=== PATIENT | male | born 1950 | race Caucasian/White ===

== ENCOUNTER → 2018-07-06 | Outpatient (CLI) | payer MEDICARE ==
[2015-10-26 23:06] VITALS: BP 146/89
[~2018-07-06] MED LIST: CEFT1VIA IJ; ESOM40CA PO; HYDR-2765 PO; PRED20TA PO; TAMS0.4C97 PO; TRAM-48 PO; TRAM50TA PO; TRIA1TAB3 PO; WARF-78 PO
--- NOTE | 2018-07-06 17:07 | RAD ---
DUPLEX SONOGRAPHY OF THE PERIPHERAL ARTERIAL SYSTEM OF [ ] Clinical indications: Peripheral arterial disease. Type 2 diabetes. Left leg numbness. Hypertension. Findings: Duplex sonography of the peripheral arterial system of both lower extremities including carranza scale and color flow and spectral waveform analysis was performed.Triphasic and biphasic waveforms are seen. No occlusive disease is seen. No significant plaque formation or stenosis is identified. The measurements were performed using the NASCET criteria. Peak systolic flow velocities are as follows: Right leg: common femoral artery- 100 cm/sec, profunda femoral artery -69 cm/sec, proximal superficial femoral artery -110 cm/sec, mid superficial femoral artery -112 cm/sec, distal superficial femoral artery- 63 cm/sec, popliteal artery -47 cm/sec, proximal posterior tibial artery- 49 cm/sec, distal posterior tibial artery- 89 cm/sec, peroneal artery- 71 cm/sec, anterior tibial artery- 38 cm/sec, dorsalis pedis artery -21 cm/sec. Left leg: common femoral artery- 123 cm/sec, profunda femoral artery -c9 cm/sec, proximal superficial femoral artery- 126cm/sec, mid superficial femoral artery- 104 cm/sec, distal superficial femoral artery- 68 cm/sec, popliteal artery -57 cm/sec, proximal posterior tibial artery -28 cm/sec, distal posterior tibial artery- 26 cm/sec, peroneal artery -40 cm/sec, anterior tibial artery -77 cm/sec, dorsalis pedis artery- 58 cm/sec. Impression: No significant peripheral arterial vascular disease is seen by duplex sonographic evaluation. Electronically signed by: Jhoan Gomez MD (07/06/2018 5:05 PM) [place] [id number]
== END | disposition home or self-care (01) ==
LOC: US 13:29
PROVIDERS: ATTEND Family Medicine
DX: E11.52 Type 2 diabetes mellitus with diabetic peripheral angiopathy with gangrene (principal); I73.9 Peripheral vascular disease, unspecified; R20.0 Anesthesia of skin; I10 Essential (primary) hypertension
CPT/HCPCS: 93925

== ENCOUNTER → 2019-06-06 | Outpatient (CLI) | payer MEDICARE ==
[2015-10-26 23:06] VITALS: BP 146/89
[~2019-06-06] MED LIST changes: +GUAI120L35 PO; +METH4TAB2 PO
[2019-06-06 17:54] LABS: BASO # 0.1 x10^3/uL (0.0-0.2); BASO % 1 % (0-3); EOS # 0.3 x10^3/uL (0.0-0.7); EOS % 4 % (0-3); HEMATOCRIT 46.6 % (39.0-53.0); HEMOGLOBIN 15.2 g/dL (13.0-17.5); LYMPH # 2.5 x10^3/uL (1.0-4.8); LYMPH % 30 % (24-48); MEAN CORPUSCULAR HEMOGLOBIN 29 pg (25-35); MEAN CORPUSCULAR HGB CONC 33 g/dL (31-37); MEAN CORPUSCULAR VOLUME 89 fL (79-100); MONO # 0.8 x10^3/uL (0.0-1.1); MONO % 9 % (0-9); NEUT # 4.8 x10^3uL (1.8-7.7); NEUT % 57 % (31-73); PLATELET COUNT 219 x10^3/uL (140-400); RED BLOOD COUNT 5.25 x10^6/uL (4.30-5.70); RED CELL DISTRIBUTION WIDTH 13.6 % (11.5-14.5); WHITE BLOOD COUNT 8.5 x10^3/uL (4.0-11.0)
[2019-06-06 18:00] LABS: CALCIUM 9.1 mg/dL (8.5-10.1); CREATININE 0.9 mg/dL (0.7-1.3); GFR 84.2; POTASSIUM 4.3 mmol/L (3.5-5.1)
--- NOTE | 2019-06-07 08:04 | RAD ---
CHEST PA LATERAL History: Dyspnea, coughing Comparison: 10/26/2015 2 view chest x-ray exam. Findings: Frontal and lateral views of the chest were obtained. The cardiomediastinal silhouette is normal. Pulmonary vasculature is normal. The lungs are clear. No pleural effusion or pneumothorax is seen. There is no acute bone abnormality. IMPRESSION: No acute cardiopulmonary process. Electronically signed by: Gentry Perrin MD (06/07/2019 8:01 AM) [facility]
== END | disposition home or self-care (01) ==
LOC: DXRAD 16:43
PROVIDERS: ATTEND Family Medicine
DX: R06.09 Other forms of dyspnea (principal)
CPT/HCPCS: 36415; 71046; 80048; 85025; 85379

== ENCOUNTER 2019-06-10 11:51 | Emergency (ER) | payer MEDICARE ==
[~2019-06-10] VITALS: Ht 172.7 cm; Wt 117.4 kg
[~2019-06-10 11:51] MED LIST changes: -GUAI120L35 PO; -METH4TAB2 PO
[2019-06-10] MEDS ORDERED: IV NORMAL SALINE 1,000ML 1,000 ML IV SCH (12:23)
[2019-06-10] MEDS ORDERED: IPRATRPIUM/ALBUTEROL 0.5/2.5MG 3 ML NEBU. NEB ONE (12:30)
[2019-06-10] MEDS ORDERED: MORPHINE SULFATE 4 MG/ML DISP.SYRIN. IV/SQ PRN (12:30)
[2019-06-10 12:33] LABS: BASO # 0.1 x10^3/uL (0.0-0.2); BASO % 1 % (0-3); EOS # 0.2 x10^3/uL (0.0-0.7); EOS % 2 % (0-3); HEMATOCRIT 47.6 % (39.0-53.0); HEMOGLOBIN 15.7 g/dL (13.0-17.5); LYMPH # 2.3 x10^3/uL (1.0-4.8); LYMPH % 27 % (24-48); MEAN CORPUSCULAR HEMOGLOBIN 29 pg (25-35); MEAN CORPUSCULAR HGB CONC 33 g/dL (31-37); MEAN CORPUSCULAR VOLUME 89 fL (79-100); MONO # 0.8 x10^3/uL (0.0-1.1); MONO % 10 % (0-9); NEUT # 5.1 x10^3uL (1.8-7.7); NEUT % 60 % (31-73); PLATELET COUNT 219 x10^3/uL (140-400); RED BLOOD COUNT 5.36 x10^6/uL (4.30-5.70); RED CELL DISTRIBUTION WIDTH 13.8 % (11.5-14.5); WHITE BLOOD COUNT 8.5 x10^3/uL (4.0-11.0)
[2019-06-10 12:39] LABS: CALCIUM 9.4 mg/dL (8.5-10.1); CREATININE 1.2 mg/dL (0.7-1.3); GFR 60.4; POTASSIUM 4.4 mmol/L (3.5-5.1)
--- NOTE | 2019-06-10 12:49 | RAD ---
Examination: PORTABLE CHEST 1V History: Cough. Comparison/Correlation: 06/06/2021 view chest x-ray exam, 10/26/2015 2 view chest x-ray exam Findings: Upright frontal view of the chest was obtained. Heart size and pulmonary vasculature are normal. No infiltrate or pleural effusion. No pneumothorax. Bony structures are unremarkable. Impression: No active disease. Electronically signed by: Gentry Perrin MD (06/10/2019 12:46 PM) [facility]
[2019-06-10 12:51] LABS: ALBUMIN 3.9 g/dL (3.4-5.0); TOTAL BILIRUBIN 0.3 mg/dL (0.2-1.0); TOTAL PROTEIN 7.8 g/dL (6.4-8.2)
[2019-06-10] MEDS ORDERED: IOHEXOL 350 MG/ML 100 ML VIAL. IV ONE (13:15)
[2019-06-10] MEDS ORDERED: MORPHINE SULFATE 4 MG/ML DISP.SYRIN. ONE (13:33)
--- NOTE | 2019-06-10 13:49 | EKG ---
[address] [address] Test Date: 2019-06-10 Test Time: 12:17:53 Pat Name: TAMMIE KASPER Department: Room: Gender: M [employer] Curer: : 1950 Requested By: MOUNA MAYS Order Number: [id number] Reading MD: Measurements Intervals [place] Rate: 108 P: 52 NC: 162 QRS: -34 QRSD: 94 T: 55 QT: 336 QTc: 454 Interpretive Statements SINUS TACHYCARDIA ABNORMAL LEFT AXIS DEVIATION R-S TRANSITION ZONE IN V LEADS DISPLACED TO THE LEFT LEFT ANTERIOR FASCICULAR BLOCK ABNORMAL ECG RI6.01 No previous ECG available for comparison
--- NOTE | 2019-06-10 13:51 | RAD ---
Examination: CT ANGIOGRAPHY CHEST History: Cough, shortness breath, chest pain Comparison/Correlation: None Findings: Axial images of the chest were obtained with IV contrast into pulmonary arteriography protocol. Sagittal and coronal reformatted images were provided. Pulmonary arterial vasculature is normal with no thromboembolic disease. Patchy opacification of proximal right lower lobe bronchi noted. No airspace disease identified. Tracheomalacia is present. No pleural or pericardial effusion. No enlarged thoracic lymph nodes. Fatty infiltration of the liver is present. Thoracic aorta is grossly unremarkable. Early bifurcation of the right main renal artery incidentally is seen. Bony structures are unremarkable. Impression: No pulmonary arterial thromboembolic disease. Opacification of the proximal right lower lobe bronchi noted. This likely represents retained mucus or inflammation. Follow-up CT exam in 12 weeks to assess resolution. Fatty infiltration of the liver. PQRS Compliance Statement: One or more of the following individualized dose reduction techniques were utilized for this examination: 1. Automated exposure control 2. Adjustment of the mA and/or kV according to patient size 3. Use of iterative reconstruction technique Electronically signed by: Gentry Perrin MD (06/10/2019 1:48 PM) [facility]
[2019-06-10 14:11] VITALS: BP 148/67
--- NOTE | 2019-06-10 14:22 | PHYS DOC ---
Past History Past Medical History: Arthritis, DVT, GERD, Hypertension, Prostatitis Past Surgical History: No Surgical History Alcohol Use: None Drug Use: None Adult General Chief Complaint Chief Complaint: COUGH HPI HPI Patient is a 68-year-old male who presents with complaint of cough and exertional shortness of breath for the last few weeks. Patient states that symptoms have progressively gotten worse over the last few days. He states that he is getting really sore in his chest from all the coughing and states that he feels some popping on the left side of his chest with the coughing and deep breathing. Patient states that cough is been intermittently productive of sputum. He states that he is currently on a course of Levaquin for treatment of the infection. Patient states that he was told to come into the emergency room to be evaluated for pulmonary embolism as he had an elevated d-dimer with labs done in the doctor's office. Patient denies any fever. He rates pain as moderate and states that pain is worsened with cough and deep breathing.[] Review of Systems Review of Systems Constitutional: Denies fever or chills [] Respiratory: Positive cough and shortness of breath [] Cardiovascular: No additional information not addressed in HPI [] Integument: Denies rash or skin lesions [] Neurologic: Denies headache, focal weakness or sensory changes [] All other systems were reviewed and found to be within normal limits, except as documented in this note. Current Medications Current Medications Current Medications Medications (Trade) Dose Ordered Sig/Thom Start Time Stop Time Status Last Admin Dose Admin Albuterol/ Ipratropium (Duoneb) 3 ml 1X ONCE 06/10/19 12:30 06/10/19 12:31 DC 06/10/19 12:30 3 ML Iohexol (Omnipaque 350 Mg/ml) 100 ml 1X ONCE 06/10/19 13:15 06/10/19 13:16 DC 06/10/19 13:22 100 ML Morphine Sulfate (Morphine 4mg Syringe) 4 mg STK-MED ONCE 06/10/19 13:33 06/10/19 13:33 DC Sodium Chloride 1,000 ml @ 1,000 mls/hr Q1H 06/10/19 12:23 06/10/19 13:22 DC 06/10/19 12:23 1,000 MLS/HR Allergies Allergies Allergies Coded Allergies Type Severity Reaction Last Updated Verified Sulfa (Sulfonamide Antibiotics) Allergy Mild 05/01/14 Yes I S O L A T I O N *CONTACT* Allergy Unknown 05/02/14 No Physical Exam Physical Exam Constitutional: Well developed, well nourished, no acute distress, non-toxic appearance. [] HENT: Normocephalic, atraumatic, bilateral external ears normal, oropharynx moist, no oral exudates, nose normal. [] Eyes: PERRLA, EOMI, conjunctiva normal, no discharge. [] Neck: Normal range of motion, no tenderness, supple, no stridor. [] Cardiovascular: Mildly tachycardic rate with regular rhythm[] Lungs & Thorax: Scattered rhonchi with fine inspiratory and expiratory wheezes to auscultation [] Abdomen: Bowel sounds normal, soft, no tenderness. [] Skin: Warm, dry, no erythema, no rash. [] Extremities: No tenderness, no cyanosis, no clubbing, ROM intact. [] Neurologic: Alert and oriented X 3, no focal deficits noted. [] Current Patient Data Vital Signs Vital Signs Date Time Temp Pulse Resp B/P (MAP) Pulse Ox O2 Delivery O2 Flow Rate FiO2 06/10/19 14:11 98 18 148/67 (94) 98 Room Air 06/10/19 12:04 97.9 Lab Results Laboratory Tests Test 06/10/19 12:08 White Blood Count 8.5 x10^3/uL (4.0-11.0) Red Blood Count 5.36 x10^6/uL (4.30-5.70) Hemoglobin 15.7 g/dL (13.0-17.5) Hematocrit 47.6 % (39.0-53.0) Mean Corpuscular Volume 89 fL (79-100) Mean Corpuscular Hemoglobin 29 pg (25-35) Mean Corpuscular Hemoglobin Concent 33 g/dL (31-37) Red Cell Distribution Width 13.8 % (11.5-14.5) Platelet Count 219 x10^3/uL (140-400) Neutrophils (%) (Auto) 60 % (31-73) Lymphocytes (%) (Auto) 27 % (24-48) Monocytes (%) (Auto) 10 % (0-9) H Eosinophils (%) (Auto) 2 % (0-3) Basophils (%) (Auto) 1 % (0-3) Neutrophils # (Auto) 5.1 x10^3uL (1.8-7.7) Lymphocytes # (Auto) 2.3 x10^3/uL (1.0-4.8) Monocytes # (Auto) 0.8 x10^3/uL (0.0-1.1) Eosinophils # (Auto) 0.2 x10^3/uL (0.0-0.7) Basophils # (Auto) 0.1 x10^3/uL (0.0-0.2) D-Dimer (Allison) 0.92 mg/L (0.00-0.50) H Sodium Level 139 mmol/L (136-145) Potassium Level 4.4 mmol/L (3.5-5.1) Chloride Level 101 mmol/L (98-107) Carbon Dioxide Level 26 mmol/L (21-32) Anion Gap 12 (6-14) Blood Urea Nitrogen 21 mg/dL (8-26) Creatinine 1.2 mg/dL (0.7-1.3) Estimated GFR (Cockcroft-Gault) 60.4 BUN/Creatinine Ratio 18 (6-20) Glucose Level 318 mg/dL (70-99) H Calcium Level 9.4 mg/dL (8.5-10.1) Total Bilirubin 0.3 mg/dL (0.2-1.0) Aspartate Amino Transferase (AST) 14 U/L (15-37) L Alanine Aminotransferase (ALT) 35 U/L (16-63) Alkaline Phosphatase 78 U/L (46-116) Troponin I Quantitative < 0.017 ng/mL (0-0.055) FV-Ncs-L-Type Natriuretic Peptide 28 pg/mL (0-124) Total Protein 7.8 g/dL (6.4-8.2) Albumin 3.9 g/dL (3.4-5.0) Albumin/Globulin Ratio 1.0 (1.0-1.7) EKG EKG [] Radiology/Procedures Radiology/Procedures [] Impressions: Examination: CT ANGIOGRAPHY CHEST History: Cough, shortness breath, chest pain Comparison/Correlation: None Findings: Axial images of the chest were obtained with IV contrast into pulmonary arteriography protocol. Sagittal and coronal reformatted images were provided. Pulmonary arterial vasculature is normal with no thromboembolic disease. Patchy opacification of proximal right lower lobe bronchi noted. No airspace disease identified. Tracheomalacia is present. No pleural or pericardial effusion. No enlarged thoracic lymph nodes. Fatty infiltration of the liver is present. Thoracic aorta is grossly unremarkable. Early bifurcation of the right main renal artery incidentally is seen. Bony structures are unremarkable. Impression: No pulmonary arterial thromboembolic disease. Opacification of the proximal right lower lobe bronchi noted. This likely represents retained mucus or inflammation. Follow-up CT exam in 12 weeks to assess resolution. Fatty infiltration of the liver. PQRS Compliance Statement: One or more of the following individualized dose reduction techniques were utilized for this examination: 1. Automated exposure control 2. Adjustment of the mA and/or kV according to patient size 3. Use of iterative reconstruction technique Course & Med Decision Making Course & Med Decision Making Pertinent Labs and Imaging studies reviewed. (See chart for details) [] Dragon Disclaimer Dragon Disclaimer This electronic medical record was generated, in whole or in part, using a voice recognition dictation system. Departure Departure: Impression: Primary Impression: Bronchitis with bronchospasm Disposition: 01 HOME, SELF-CARE Condition: STABLE Referrals: KOBE CARROLL MD (PCP) Patient Instructions: Acute Bronchitis, Bronchospasm, Adult Scripts Methylprednisolone (MEDROL) 4 Mg Tab.ds.pk 1 PKG PO UD for inflammation, #1 PKG Prov: MOUNA MAYS Jr. DO 06/10/19 Guaifenesin/Codeine Phosphate (Codeine-Guaifen 10-100 mg/5 ml) 120 Ml Liquid 5 ML PO PRN Q6HRS PRN for cough and congestion MDD 20 Milliliter(s) for 6 Days, #120 ML 0 Refills Prov: MOUNA MAYS Jr. DO 06/10/19 MOUNA MAYS Jr. DO Jun 10, 2019 14:22
[2019-06-10] MEDS ORDERED: GUAI120L35 PO (14:28)
[2019-06-10] MEDS ORDERED: METH4TAB2 PO (14:28)
== END 2019-06-10 14:40 | disposition home or self-care (01) ==
LOC: ER 11:51
DX: J40 Bronchitis, not specified as acute or chronic (principal); J98.01 Acute bronchospasm; M19.90 Unspecified osteoarthritis, unspecified site; K21.9 Gastro-esophageal reflux disease without esophagitis; I10 Essential (primary) hypertension; Z86.718 Personal history of other venous thrombosis and embolism; Z91.041 Radiographic dye allergy status; Z88.2 Allergy status to sulfonamides
CPT/HCPCS: 36415; 71045; 71275; 80053; 83880; 84484; 85025; 85379; 93005; 94640; 96374; 99285; J2270; J7620; Q9967; J7030

== ENCOUNTER → 2019-07-20 | Outpatient (CLI) | payer MEDICARE ==
[~2019-07-20] MED LIST changes: +GUAI120L35 PO; +IOHEXOL 350 MG/ML 100 ML VIAL. IV ONE; +METH4TAB2 PO
--- NOTE | 2019-07-20 09:13 | RAD ---
CT arteriogram of the chest. HISTORY: Chest pain CT arteriogram of the chest was performed using 100 mL Omnipaque 350 contrast. Comparison is made with a study from June 10. Thyroid is homogeneous. There is no mediastinal adenopathy. There is a small right pleural effusion which is new compared to the prior study. This mild atelectasis in the right lower lobe. There is mild scoliosis. Visualized portions the liver and spleen are unremarkable. Adrenal glands are normal. Upper poles the kidneys are normal. There are no confluent areas of infiltrate. There is a small nodule right lower lobe without change from the old study. Coronal MIP images were reconstructed. This study is negative for evidence of a pulmonary embolus. There is a calcified granuloma in the right upper lobe. impression: 1. Right pleural effusion. 2. Right basilar atelectasis. 3. Negative for a pulmonary embolus. PQRS Compliance Statement: One or more of the following individualized dose reduction techniques were utilized for this examination: 1. Automated exposure control 2. Adjustment of the mA and/or kV according to patient size 3. Use of iterative reconstruction technique Electronically signed by: Mook Cardona MD (07/20/2019 9:09 AM) [id number]
== END ==
LOC: CT 08:30
PROVIDERS: ATTEND Family Medicine
DX: J98.11 Atelectasis (principal); J90 Pleural effusion, not elsewhere classified; R79.9 Abnormal finding of blood chemistry, unspecified; J44.9 Chronic obstructive pulmonary disease, unspecified
CPT/HCPCS: 71275; Q9967

== ENCOUNTER → 2019-10-26 | Outpatient (CLI) | payer MEDICARE ==
[~2019-10-26] MED LIST changes: +ALBU0.63 NEB; +DULA1.5P SQ; +GLYB5TAB3 PO; -IOHEXOL 350 MG/ML 100 ML VIAL. IV ONE; +LEVO88TA2 PO; +METO50TA6 PO; -WARF-78 PO; +WARF5TAB2 PO; +anxiety med
== END | disposition home or self-care (01) ==
LOC: LAB 10:05
PROVIDERS: ATTEND Registered Nurse
DX: Z01.818 Encounter for other preprocedural examination (principal); Z11.59 Encounter for screening for other viral diseases
CPT/HCPCS: 36415; U0003

== ENCOUNTER → 2019-10-28 | Day surgery (SDC) | payer MEDICARE ==
[~2019-10-28] MED LIST changes: +IPRATRPIUM/ALBUTEROL 0.5/2.5MG 3 ML NEBU. NEB PRN; +KETAMINE HCL 500 MG/10 ML VIAL. ONE; +MIDAZOLAM HCL PF 2 MG/2 ML VIAL. IV ONE; +ONDANSETRON PF 4 MG/2 ML VIAL. IV PRN; +PROPOFOL 10,000 MCG/ML (20ML) VIAL IV ONE
[2019-10-28] MEDS: IV RINGERS SOLUTION,LACTATED 1,000 ML IV SCH (11:04)
[2019-10-28 12:25] VITALS: BP 145/88
--- NOTE | 2019-11-01 18:09 | PATHOLOGY ---
[facility] Accession Number: [id number] . 01 Material submitted: . PART A: stomach - ANTRUM GASTRITIS PART B: stomach - GASTRIC POLYP PART C: esophagus - DISTAL ESOPHAGUS. Modifiers: distal . 02 Diagnosis: A. Gastric biopsies, antrum: - Chronic gastritis, mild to moderate. . B. Gastric biopsy, gastric polyp: - Fundic gland polyp with mild superficial chronic inflammation. . C. Esophageal biopsy, distal esophagus: - Segment of esophagogastric mucosa showing chronic inflammation. . (JPM:mm; 11/01/2019) [facility] 11/01/2019 0946 Local . 02 Comment: Sections of the gastric antral biopsy show congestion and mild to moderate chronic inflammation. A properly-controlled immunoperoxidase stain for Helicobacter is negative for Helicobacter organisms. . Sections of the gastric polyp biopsy reveal a fundic gland polyp showing mild superficial chronic inflammation. There are no adenomatous changes or evidence of malignancy. . Sections of the distal esophageal biopsy reveal a segment of esophagogastric mucosa showing chronic inflammation. There is no evidence of Issa's change, dysplasia or malignancy. . Special stain (A1): Immunoperoxidase stain for Helicobacter . (JPM:mmjaz; 11/01/2019) . 02 Electronically signed: . Serge Valenzuela MD, Pathologist NPI- [id number] . 01 Gross description: . A. The specimen is received in formalin labeled "Isreal Christiansen, antrum gastritis" and consists of 2 fragments of tavares tissue measuring 0.6 x 0.2 x 0.2 cm in aggregate which are entirely submitted in A1. . B. The specimen is received in formalin labeled "Елена, Isreal, gastric polyp" and consists of a fragment of tavares tissue is measuring 0.4 x 0.2 x 0.2 cm which is entirely submitted in B1. . C. The specimen is received in formalin labeled "Page, Isreal, distal esophagus Issa's" and consists of a fragment of white-tavares tissue measuring 0.4 x 0.2 x 0.1 cm which is entirely submitted in C1. (DELICIA; 10/31/2019) JFQ/JFQ 10/31/2019 1821 Local . 02 Pathologist provided ICD-10: K29.50, K31.7, K20.8 . 02 CPT . 135109, [id number], [id number], [id number] Specimen Comment: A courtesy copy of this report has been sent to [phone] Specimen Comment: [id number] Specimen Comment: Report sent to / DR CARROLL Performed at: 01 [facility] [address] [facility] [facility] [address], [place] [id number] MD Tru Olea MD Phone: [phone] Performed at: 02 [facility] [address] [place], [place] [id number] MD Serge Valenzuela MD Phone: [phone]
== END ==
LOC: SURG 10:37
PROVIDERS: ATTEND Internal Medicine Gastroenterology
DX: K21.0 Gastro-esophageal reflux disease with esophagitis (principal); K29.00 Acute gastritis without bleeding; K29.50 Unspecified chronic gastritis without bleeding; K44.9 Diaphragmatic hernia without obstruction or gangrene; I10 Essential (primary) hypertension; E11.9 Type 2 diabetes mellitus without complications; Z86.718 Personal history of other venous thrombosis and embolism; Z79.899 Other long term (current) drug therapy; Z79.84 Long term (current) use of oral hypoglycemic drugs
CPT/HCPCS: 43239; 82947; 88305; 88342; J2704; J3490; J7120; 45380